=== PATIENT | male | born 2000 | race Caucasian/White ===

== ENCOUNTER 2025-05-31 11:56 | Outpatient (CLI) | payer OTHER ==
--- NOTE | 2025-05-31 14:13 | RADIOLOGY REPORT ---
CLINICAL HISTORY: Left foot pain TECHNIQUE: Multisequence multiplanar MRI images of the left ankle were obtained without contrast. COMPARISON: None FINDINGS: BONES/JOINTS: Nondisplaced avulsion fracture of the 5th metatarsal base, of uncertain chronicity, may be subacute, with marrow edema and transversely oriented fracture plane. No displacement. No signifi cant osseous fusion is seen at the fracture site at this time. There are patchy areas of T2 hyperint ense and T1 hypointense marrow signal in the hindfoot and midfoot, most prominent adjacent to the pal nts of the midfoot and hindfoot. There are some more confluent areas of marrow edema, including of th e medial plantar aspect of the talar neck. No significant joint effusion. TENDONS: Mild tendinosis of the distal tibialis posterior tendon. Flexor digitorum longus and flexor hallucis longus tendons are intact. Peroneus longus and brevis tendons are intact. Tibialis anterior, extensor hallucis longus, and extensor digitorum longus tendons are intact. Mild Achilles tendinosis . No tear or significant peritendinitis. LIGAMENTS: Deltoid ligament complex is intact. Spring ligament complex is intact. Mild sprain of the anterior talofibular ligament. Posterior talofibular ligament is intact. Moderate thickened calcaneo fibular ligament without adjacent edema or evidence of tear. Syndesmotic ligaments are intact. PLANTAR FASCIA: Unremarkable. No significant thickening or edema. SINUS TARSI: Unremarkable. No significant edema. MUSCLES: Unremarkable. No significant atrophy. OTHER: No other significant findings. IMPRESSION: 1. Nondisplaced avulsion fracture of the 5th metatarsal base as described above, may be subacute. Co rrelate with clinical findings. There is associated marrow edema and no significant osseous fusion at this time. 2. 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 Complex regional pain syndrome could also have a similar appearance in the appropriate clinical setting. Superimposed stress related changes/stress injury not excluded. More confluent areas of marrow edema are seen, including of the medial plantar aspect of the talar n felipe, which may also be due to disuse osteopenia, complex regional pain syndrome, stress related jean es, or possibly contusion in the appropriate clinical setting. 3. Mild sprain of the anterior talofibular ligament. 4. Mild tendinosis of the distal tibialis posterior tendon and mild Achilles tendinosis. 5. Additional findings as described above.
== END 2025-05-31 23:59 | disposition home or self-care (01) ==
LOC: MRI02 11:56
PROVIDERS: ATTEND Podiatrist Foot & Ankle Surgery
DX: S92.355A Nondisplaced fracture of fifth metatarsal bone, left foot, initial encounter for closed fracture (principal); S93.602A Unspecified sprain of left foot, initial encounter; M79.672 Pain in left foot; R60.0 Localized edema; M67.874 Other specified disorders of tendon, left ankle and foot; X58.XXXA Exposure to other specified factors, initial encounter; Y93.89 Activity, other specified; Y92.89 Other specified places as the place of occurrence of the external cause; Y99.8 Other external cause status
CPT/HCPCS: 73721